=== PATIENT | female | born 1950 | race Caucasian/White ===

== ENCOUNTER 2022-09-05 06:14 | Day surgery (SDC) | payer MEDICARE ==
[2022-09-04 12:06] VITALS: BMI 25.7
[~2022-09-05 06:14] MED LIST: Fluorouracil 100 MG, Enoxaparin Sodium 25 MG, EPINEPHrine 0.3 MG in Ophthalmic Irrigati... IRR SCH
[2022-09-05] MEDS ORDERED: Phenylephrine 2.5% Ophth Soln 5 ML BOT ONE (06:42)
[2022-09-05] MEDS ORDERED: Cyclopentolate 1% Opth Drop 2 ML BOT ONE (06:42)
== END 2022-09-05 09:43 | disposition home or self-care (01) ==
LOC: SDC 06:14
PROVIDERS: ATTEND Ophthalmology Retina Specialist
PROC: 08T53ZZ Resection of Left Vitreous, Percutaneous Approach (ICD-10-PCS; principal; 2022-09-05)
PROC: 08NF3ZZ Release Left Retina, Percutaneous Approach (ICD-10-PCS; 2022-09-05)
DX: H35.342 Macular cyst, hole, or pseudohole, left eye (principal); I10 Essential (primary) hypertension; E78.5 Hyperlipidemia, unspecified
CPT/HCPCS: 67025; J0171; J1650; J9190

== ENCOUNTER 2023-09-11 06:34 | Day surgery (SDC) | payer MEDICARE ==
[2023-09-10 17:10] VITALS: BMI 26.5
[~2023-09-11 06:34] MED LIST changes: +EPINEPHrine 0.3 MG in Ophthalmic Irrigation Solution 500 ML IRR SCH; -Fluorouracil 100 MG, Enoxaparin Sodium 25 MG, EPINEPHrine 0.3 MG in Ophthalmic Irrigati... IRR SCH
[2023-09-11] MEDS ORDERED: Cyclopentolate 1% Opth Drop 2 ML BOT ONE (06:50)
[2023-09-11] MEDS ORDERED: PHENYLephrine 2.5% Ophth Soln 15 ml Bottle ONE (06:50)
[2023-09-11] MEDS ORDERED: Lidocaine 1% PF 5 ML VIAL ONE ×2 (07:55→08:01)
[2023-09-11] MEDS ORDERED: PROPOFOL 20 ML ONE (07:55)
[2023-09-11] MEDS ORDERED: Bupivacaine 0.75% 10 ML VIAL ONE (08:01)
[2023-09-11] MEDS ORDERED: Lidocaine 4% PF 5 ML AMP ONE (08:01)
[2023-09-11] MEDS ORDERED: CEFAZOLIN 1 GM VIAL ONE (08:01)
[2023-09-11] MEDS ORDERED: Maxitrol 0.1% Opth Oint 3.5 GM TUBE ONE (08:01)
[2023-09-11] MEDS ORDERED: Triamcinolone 40 MG/ML VIAL ONE (08:01)
== END 2023-09-11 09:21 | disposition home or self-care (01) ==
LOC: SDC 06:34
PROVIDERS: ATTEND Ophthalmology Retina Specialist
PROC: 08T43ZZ Resection of Right Vitreous, Percutaneous Approach (ICD-10-PCS; principal; 2023-09-11)
DX: H35.341 Macular cyst, hole, or pseudohole, right eye (principal)
CPT/HCPCS: 67025; J0171; J0690; J2704; J3301; J3490